=== PATIENT | female | born 1995 | race Asian ===

== ENCOUNTER 2019-03-14 16:39 | Emergency (ER) | payer OTHER ==
[~2019-03-14] VITALS: Ht 160 cm; Wt 68.8 kg
[~2019-03-14 16:39] MED LIST: IBUP-1542 PO
[2019-03-14 16:45] VITALS: Ht 160 cm; Wt 68.8 kg
[2019-03-14] MEDS ORDERED: IBUPROFEN 600 MG TAB PO ONE (17:30)
[2019-03-14 18:25] VITALS: BP 121/75; PULSE 88; RESP 18
--- NOTE | 2019-03-14 21:11 | ERD ---
ER Documentation Chief Complaint Chief Complaint left ankle pain and right leg pain x 2 days HPI 24-year-old female presenting to the emergency department complaining of intermittent left ankle pain after a fall which occurred 2 days ago. She states she was going down the stairs and accidentally twisted her left ankle. Her pain is rated 2/10 in severity at rest. She denies any head injury, loss of consciousness, or other symptoms or injuries at this time. ROS All systems reviewed and are negative except as per history of present illness. Medications Home Meds Active Scripts Ibuprofen* (Motrin*) 600 Mg Tab, 600 MG PO Q6, #30 TAB Prov:CYNTHIA SIDDIQI PA-C 03/14/19 Allergies Allergies: Coded Allergies: No Known Allergy (Unverified , 03/14/19) PMhx/Soc Medical and Surgical Hx: pt denies Medical Hx, pt denies Surgical Hx Hx Alcohol Use: No Hx Substance Use: No Hx Tobacco Use: No Smoking Status: Never smoker FmHx Family History: No diabetes Physical Exam Vitals Vital Signs Date Temp Pulse Resp B/P (MAP) Pulse Ox O2 O2 Flow FiO2 Time Delivery Rate 03/14/19 98.4 88 18 121/75 100 Room Air 18:25 (90) 03/14/19 98.4 97 18 113/0 (37) 100 16:45 Physical Exam Const: No acute distress Head: Atraumatic Eyes: Normal Conjunctiva ENT: Normal External Ears, Nose and Mouth. Neck: Full range of motion. No meningismus. Resp: No respiratory distress. Skin: No petechiae or rashes Back: No midline or flank tenderness Ext: No cyanosis, or edema. Tenderness palpation over the medial malleolus of the left lower extremity. No obvious deformity or open fracture. The patient is neurovascularly intact distally. Neur: Awake and alert Psych: Normal Mood and Affect Results 24 hrs Current Medications Medications Dose Sig/Rene Start Time Status Last (Trade) Ordered Route PRN Stop Time Admin Dose Reason Admin Ibuprofen 600 mg ONCE ONCE 03/14/19 DC 03/14/19 (Motrin) PO 17:30 03/14/19 17:14 17:[address] [address] Radiology Main Line: [phone] DIAGNOSTIC IMAGING REPORT Patient: CECY MCKAY : 1995 Age: 24 Sex: F MR #: [id number] DOS: 03/14/19 0000 Ordering MD: CYNTHIA SIDDIQI PA-C Location: [facility] Room/Bed: PROCEDURE: XR Ankle. CLINICAL INDICATION: Left ankle pain TECHNIQUE: 3 views of the left ankle were performed. COMPARISON: None. FINDINGS: There is no evidence of acute fracture. There is focal cortical thickening of the lateral aspect of the fibular shaft about 12 cm proximal to the fibular tip. Joint spaces are preserved. Soft tissues are grossly unremarkable. IMPRESSION: 1. No radiographic evidence of acute osseous abnormality. 2. Nonspecific focal cortical thickening at the lateral margin of the fibular shaft 12 cm from the fibular tip. This could reflect site of previous trauma though if there is focal pain at this location consider dedicated MRI of the tibia / fibula for further evaluation. RPTAT: UU .Adam Cifuentes MD, MD Date Time Electronically viewed and signed by .Adam Cifuentes MD, on 03/14/2019 17:33 .K/ CC: CYNTHIA SIDDIQI PA-C [id number] Procedures/MDM 24-year-old female presents emergency department with signs and symptoms most consistent with left ankle sprain. X-ray showed no evidence of fracture. Low suspicion for compartment syndrome, open fracture, significant ligamental or tendon injury, or other emergent process. Patient required Sar[place] wrap and crutches for immobilization and of Possible occult fracture.Splint Assessment: Neurovascularly intact post splint placement with good fit. Patient's extremity symptoms have stabilized while they have been evaluated in the department and are appropriate for outpatient follow up. No evidence of compartment syndrome, neurologic injury, vascular injury, open joint, open fracture, tendon laceration, or foreign body. Departure Diagnosis: Primary Impression: Left ankle sprain Encounter type: initial encounter Involved ligament of ankle: unspecified ligament Qualified Codes: S93.402A - Sprain of unspecified ligament of left ankle, initial encounter Condition: Fair Patient Instructions: Self-Care for Strains and Sprains Referrals: [facility] 7 a.m.- 11 p.m. Every Day of the Week NO APPOINTMENT OR AUTHORIZATION NEEDED [facility] [place] Hours: Wed-Wed 9:00 AM - 5:00 PM Additional Instructions: Call your primary care doctor TOMORROW for an appointment during the next 1-2 days.See the doctor sooner or return here if your condition worsens before your appointment time. CYNTHIA SIDDIQI PA-C Mar 14, 2019 21:11
== END 2019-03-14 18:26 | disposition home or self-care (01) ==
LOC: FTE 16:39
DX: S93.402A Sprain of unspecified ligament of left ankle, initial encounter (principal); W10.9XXA Fall (on) (from) unspecified stairs and steps, initial encounter; Y92.9 Unspecified place or not applicable
CPT/HCPCS: 73610; Z7502; Z7610